=== PATIENT | female | born 1975 | race Caucasian/White ===

== ENCOUNTER 2020-07-04 05:55 | Day surgery (SDC) | payer OTHER ==
[2020-07-01 14:10] VITALS: BMI 25.7
--- OUTSIDE RECORDS SUMMARY | 2020-07-04 05:59 | XMS ---
:1975 Author Organization [facility] Support Name Relationship Address Phone MTA Unavailable [address] [place] [address] JAIMIE ELMORE [phone] [place] [address] Re-disclosure Warning The records that you are about to access may contain information from federally- assisted alcohol or drug abuse programs. If such information is present, then the following federally mandated warning applies: This information has been disclosed to you from records protected by federal confidentiality rules (42 CFR part 2). The federal rules prohibit you from making any further disclosure of this information unless further disclosure is expressly permitted by the written consent of the person to whom it pertains or as otherwise permitted by 42 CFR part 2. A general authorization for the release of medical or other information is NOT sufficient for this purpose. The Federal rules restrict any use of the information to criminally investigate or prosecute any alcohol or drug abuse patient.The records that you are about to access may contain highly sensitive health information, the redisclosure of which is protected by Article 27-F of the [facility] Public Health law. If you continue you may haveaccess to information: Regarding HIV / AIDS; Provided by facilities licensed or operated by the [facility] Office of Mental Health; or Provided by the [facility] Office for People With Developmental Disabilities. If such information is present, then the following [facility] mandated warning applies: This information has been disclosed to you from confidential records which are protected by state law. State law prohibits you from making any further disclosure of this information without the specific written consent of the person to whom it pertains, or as otherwise permitted by law. Any unauthorized further disclosure in violation of state law may result in a fine or longterm sentence or both. A general authorization for the release of medical or other information is NOT sufficient authorization for further disclosure. Insurance Providers Payer name Policy type / Policy ID Covered Covered alliance party's Policy Plan Coverage type alliance party ID relationship to Ren Information ren [employer] HMO [id number] SP [id number] 1 Results ID Date Data Source [id number] 06/30/2020 04:15:00 PM EDT [facility] Name Value Range Interpretation Description Data Sup porting Code Source(s) Document(s ) SARS [facility] coronavirus 2 RNA This lab was ordered by [facility] and reported by [facility]. Procedure
[2020-07-04] MEDS ORDERED: MIDAZOLAM HCL 2 MG/2 ML SINGLE DOSE VIAL ONE (08:21)
--- NOTE | 2020-07-04 10:03 | OP ---
Operative Note - Note: Operative Date: 07/04/20 Pre-Operative Diagnosis: Right renal stone Operation: Right ESWL Findings: 6 mm upper pole Right renal stone Post-Operative Diagnosis: Same as Pre-op Anesthesia: Regional Estimated Blood Loss (mls): 0 Operative Report Dictated: Yes
[2020-07-04 10:20] VITALS: BP 122/88; PULSE 74; TEMP 98
--- NOTE | 2020-07-04 19:20 | OP ---
DATE OF OPERATION: 07/04/2020 PREOPERATIVE DIAGNOSIS: Right renal stone. POSTOPERATIVE DIAGNOSIS: Right renal stone. PROCEDURE: Right extracorporeal shockwave lithotripsy. ATTENDING: Deny Alanis M.D. ANESTHESIA: Fractional. DESCRIPTION OF PROCEDURE: Patient was brought in the operating room, placed in a supine position on the operating room table. Ultrasonography and fluoroscopy were performed. A 6-mm right upper pole stone was identified. Anesthesia and preoperative antibiotics were then administered. Shockwave lithotripsy was then started. 2500 impulses at 16 joules of power were administered to the stone with excellent fragmentation noted under realtime ultrasonography and fluoroscopy. No complications were noted. DISPOSITION: To recovery room. DENY PINO M.D. [id number]
== END 2020-07-04 10:25 | disposition home or self-care (01) ==
LOC: JASU-SURG 05:55
PROVIDERS: ATTEND Urology
PROC: 0TF3XZZ Fragmentation in Right Kidney Pelvis, External Approach (ICD-10-PCS; principal; 2020-07-04 09:00)
DX: N20.0 Calculus of kidney (principal)
CPT/HCPCS: 81025

== ENCOUNTER 2021-04-24 08:16 | Emergency (ER) | payer OTHER ==
[2021-04-24 08:33] VITALS: BP 139/91; PULSE 72; TEMP 97.9; BMI 26.6
[2021-04-24 09:35] LABS: BASO % 0.9 % (0-2.0); HEMATOCRIT 31.6 % (32.4-45.2); LYMPH % 39.1 % (8-40); MCH 22.5 pg (25.7-33.7); MCHC 31.6 g/dl (32.0-36.0); MEAN CELL VOLUME 71.1 fl (80-96); MEAN PLT VOLUME 6.7 fl (7.5-11.1); PLATELET COUNT 399 10^3/uL (134-434); RBC 4.45 M/mm3 (3.60-5.2); RDW 17.9 % (11.6-15.6); WHITE BLOOD COUNT 7.8 K/mm3 (4.0-10.0)
[2021-04-24 09:54] LABS: ALBUMIN 3.8 g/dl (3.4-5.0); CALCIUM 8.2 mg/dL (8.5-10.1)
[2021-04-24 09:55] LABS: BLOOD UREA NITROGEN 15.3 mg/dL (7-18)
[2021-04-24] MEDS ORDERED: IBUPROFEN 400 MG TABLET (FP) PO ONE ×2 (09:56→10:12)
[2021-04-24 09:59] LABS: CREATININE 0.5 mg/dL (0.55-1.3)
[2021-04-24 10:00] LABS: BILIRUBIN,TOTAL 0.4 mg/dL (0.2-1); TOT PROT 6.7 g/dl (6.4-8.2)
[2021-04-24 10:56] LABS: URINE APPEARANCE CLEAR; URINE BILIRUBIN NEGATIVE (NEGATIVE); URINE COLOR YELLOW; URINE GLUCOSE (UA) NEGATIVE (NEGATIVE); URINE KETONE NEGATIVE (NEGATIVE); URINE LEUK ESTERASE NEGATIVE (NEGATIVE); URINE NITRITE NEGATIVE (NEGATIVE); URINE PROTEIN TRACE (NEGATIVE); URINE UROBILINOGEN 0.2 mg/dL (0.2-1.0)
[2021-04-24 10:59] LABS: HCG,QUALITATIVE URINE Negative
== END 2021-04-24 12:00 | disposition home or self-care (01) ==
LOC: JER 08:16
DX: M54.5 Low back pain (principal)
CPT/HCPCS: 36415; 76775-TC; 80053; 81003; 84703; 85025; 99284-25

== ENCOUNTER 2024-06-04 04:57 | Day surgery (SDC) | payer OTHER ==
[2024-05-28 10:02] VITALS: BMI 29.7
[2024-06-04 10:35] VITALS: RESP 20
[2024-06-04 10:42] VITALS: BP 111/81; PULSE 61; TEMP 98
== END 2024-06-04 10:51 | disposition home or self-care (01) ==
LOC: JASU-ENDO 04:57
PROVIDERS: ATTEND Internal Medicine Gastroenterology
PROC: 0DB68ZX Excision of Stomach, Via Natural or Artificial Opening Endoscopic, Diagnostic (ICD-10-PCS; 2024-06-04)
PROC: 0DB78ZX Excision of Stomach, Pylorus, Via Natural or Artificial Opening Endoscopic, Diagnostic (ICD-10-PCS; 2024-06-04)
PROC: 0DJD8ZZ Inspection of Lower Intestinal Tract, Via Natural or Artificial Opening Endoscopic (ICD-10-PCS; principal; 2024-06-04 09:30)
DX: Z12.11 Encounter for screening for malignant neoplasm of colon (principal); R10.13 Epigastric pain
CPT/HCPCS: 81025; 88305-TC; 88342-TC